=== PATIENT | male | born 1970 | race Caucasian/White ===

== ENCOUNTER 2022-09-01 23:28 | Inpatient (IN) | payer MEDICARE, OTHER ==
[2022-09-01] MEDS ORDERED: LORazepam 2 MG/ML INJ IV PRN ×3 (23:53)
[2022-09-01] MEDS ORDERED: LORazepam 2 MG/ML INJ IV STA (23:53)
[2022-09-01] MEDS ORDERED: THIAMINE 100 MG/ML 2 ML VIAL IM STA (23:53)
--- NOTE | 2022-09-01 23:56 | ED ---
General Adult HPI - General Chief complaint: Chest Pain Stated complaint: High Heart rate Time Seen by Provider: 09/01/22 23:34 Source: patient Mode of arrival: EMS Limitations: no limitations - History of Present Illness Initial comments: Dictation was produced using [employer] dictation software. please excuse any grammatical, word or spelling errors. Chief Complaint: 52-year-old male presents to emergency room for tachycardia History of Present Illness: To 4-year-old male presents emergency department for tachycardia. Patient is a alcoholic. He drinks 3-4 pints of liquor each day. His last alcohol intake was 24 hours ago. Patient tried to check into detox facility, [facility]. Initial vitals upon evaluation showed patient had a high heart rate anywhere between 06/26/1947. Patient complaint of palpitations and some chest pressure. Denies any cardiac history. Patient states pain is nonradiating. No associated diaphoresis or nausea. Denies any abdominal pain. Denies any shortness of breath The ROS documented in this emergency department record has been reviewed and confirmed by me. Those systems with pertinent positive or negative responses have been documented in the HPI. All other systems are other negative and/or noncontributory. PHYSICAL EXAM: General Impression: Alert and oriented x3, not in acute distress HEENT: Normocephalic atraumatic, extra-ocular movements intact, pupils equal and reactive to light bilaterally, mucous membranes moist. Cardiovascular: Tachycardic Chest: Able to complete full sentences, no retractions, no tachypnea Abdomen: abdomen soft, non-tender, non-distended, no organomegaly Musculoskeletal: Pulses present and equal in all extremities, no peripheral edema Motor: no focal deficits noted Neurological: CN II-XII grossly intact, no focal motor or sensory deficits noted Skin: Intact with no visualized rashes Psych: Normal affect and mood ED course: 52-year-old male presents emergency Department from [facility] detox [facility] for tachycardia. Patient also complaining of chest pressure. Vital signs upon arrival shows heart rate 134, rest of vital signs within acceptable limits. EKG shows sinus tachycardia without any signs of ischemia Nursing notes and chart review was performed EKG interpreted by me: Ventricular rate 125, sinus tachycardia, MI interval 134, QRS 92, QTc 45. No MI prolongation, no QTC prolongation, no ST or T-wave changes noted. Overall, this EKG is unremarkable Was pt. sent in by a medical professional or institution (ADRYAN Murillo, TECHNICAL RECRUITER, urgent care, hospital, or alf...) When possible be specific @ -[facility] Did you speak to anyone other than the patient for history (EMS, parent, family, police, friend...)? What history was obtained from this source @ -No Did you review nursing and triage notes (agree or disagree)? Why? @ -I reviewed and agree with nursing and triage notes Were old charts reviewed (outside hosp., previous admission, EMS record, old EKG, old radiological studies, urgent care reports/EKG's, alf records)? Report findings @ -No old charts were reviewed Differential Diagnosis (chest pain, altered mental status, abdominal pain women, abdominal pain men, vaginal bleeding, musculoskeletal, weakness, fever, dyspnea, syncope, headache, dizziness, GI bleed, back pain, seizure, CVA, palpatations, mental health)? @ -Differential Chest Pain: Stable Angina, Unstable Angina, STEMI, NSTEMI Aortic Dissection, Pneumothorax, Musculoskeletal, Esophageal Spasm GERD, Cholecystitis, Pancreatitis, Zoster, this is not meant to be an all-inclusive list. EKG interpreted by me (3pts min.). @ -See above X-rays interpreted by me (1pt min.). @ -Non acute CT interpreted by me (1pt min.). @ -None done U/S interpreted by me (1pt. min.). @ -None done What testing was considered but not performed or refused? (CT, X-rays, U/S, labs)? Why? @ -None What meds were considered but not given or refused? Why? @ -None Did you discuss the management of the patient with other professionals (professionals i.e. ADRYAN Murillo, TECHNICAL RECRUITER, lab, RT, psych nurse, professor of social work, experience designer, teacher, ground defence officer, dependency case manager)? Give summary @ -Dr. Johnson for admission Was smoking cessation discussed for >3mins.? @ -No Was critical care preformed (if so, how long)? @ -No Were there social determinants of health that impacted care today? How? (Homelessness, low income, unemployed, alcoholism, drug addiction, transportation, low edu. Level, literacy, decrease access to med. care, retirement, rehab)? @ -Alcoholism Was there de-escalation of care discussed even if they declined (Discuss DNR or withdrawal of care, Hospice)? DNR status @ -No What co-morbidities impacted this encounter? (DM, HTN, Smoking, COPD, CAD, Cancer, CVA, ARF, Chemo, Hep., AIDS, mental health diagnosis, sleep apnea, morbid obesity)? @ -None Was patient admitted / discharged? Hospital course, mention meds given and route, prescriptions, significant lab abnormalities, going to OR and other pertinent info. @ -Male presents emergency department for tachycardia. Patient appears to be spritzing alcohol withdrawals. He also has complaint of chest pain. His symptoms are atypical typical features. His cardiac workup is so far negative. Patient be admitted for alcohol withdrawals. And cardiac evaluation. Undiagnosed new problem with uncertain prognosis? @ -No Drug Therapy requiring intensive monitoring for toxicity (Heparin, Nitro, Insulin, Cardizem)? @ -No Were any procedures done? @ -No Diagnosis/symptom? Acute, or Chronic, or Acute on Chronic? Uncomplicated (without systemic symptoms) or Complicated (systemic symptoms)? @ -1. Alcohol Withdrawal, 2. Chest pain Side effects of treatment? @ -No Exacerbation, Progression, or Severe Exacerbation? @ -No Poses a threat to life or bodily function? How? (Chest pain, [place], [place], pneumonia, PE, COPD, DKA, ARF, appy, cholecystitis, CVA, Diverticulitis, Homicidal, Suicidal, threat to staff... and all critical care pts) @ -No - Related Data Allergies Allergy/AdvReac Type Severity Reaction Status Date / Time metoprolol [From Lopressor] Allergy Rapid Verified 09/02/22 00:01 Heart Rate Penicillins Allergy Unknown Verified 09/02/22 00:01 Childhood Review of Systems ROS Statement: Those systems with pertinent positive or pertinent negative responses have been documented in the HPI. ROS Other: All systems not noted in ROS Statement are negative. Past Medical History Past Medical History: Hypertension Additional Past Medical History / Comment(s): Cerebral Aataxia Past Surgical History: No Surgical Hx Reported Past Psychological History: No Psychological Hx Reported Smoking Status: Former smoker Past Alcohol Use History: Abuse Past Drug Use History: None Reported General Exam Limitations: no limitations Course Vital Signs 09/01/22 23:30 Temperature 97.7 F Pulse Rate 134 H Respiratory 16 Rate Blood Pressure 166/95 O2 Sat by Pulse 93 L Oximetry Medical Decision Making - Lab Data Result diagrams: 09/01/22 23:55 09/01/22 23:55 Lab Results 09/01/22 09/01/22 09/01/22 Range/Units 23:55 23:55 23:55 WBC 11.3 H (3.8-10.6) k/uL RBC 4.54 (4.30-5.90) m/uL Hgb 13.7 (13.0-17.5) gm/dL Hct 39.5 (39.0-53.0) % MCV 87.1 (80.0-100.0) fL MCH 30.2 (25.0-35.0) pg MCHC 34.6 (31.0-37.0) g/dL RDW 13.5 (11.5-15.5) % Plt Count 167 (150-450) k/uL MPV 7.3 Neutrophils % 85 % Lymphocytes % 9 % Monocytes % 3 % Eosinophils % 1 % Basophils % 1 % Neutrophils # 9.6 H (1.3-7.7) k/uL Lymphocytes # 1.1 (1.0-4.8) k/uL Monocytes # 0.4 (0-1.0) k/uL Eosinophils # 0.2 (0-0.7) k/uL Basophils # 0.1 (0-0.2) k/uL PT 10.0 (9.0-12.0) sec INR 0.9 (<1.2) APTT 22.5 (22.0-30.0) sec Sodium 128 L (137-145) mmol/L Potassium 3.8 (3.5-5.1) mmol/L Chloride 86 L (98-107) mmol/L Carbon Dioxide 28 (22-30) mmol/L Anion Gap 14 mmol/L BUN 23 H (9-20) mg/dL Creatinine 1.18 (0.66-1.25) mg/dL Est GFR (CKD-EPI)AfAm 83 (>60 ml/min/1.73 sqM) Est GFR (CKD-EPI)NonAf 72 (>60 ml/min/1.73 sqM) Glucose 99 (74-99) mg/dL Calcium 7.7 L (8.4-10.2) mg/dL Magnesium 1.4 L (1.6-2.3) mg/dL Total Bilirubin 1.0 (0.2-1.3) mg/dL AST 66 H (17-59) U/L ALT 42 (4-49) U/L Alkaline Phosphatase 52 (38-126) U/L Troponin I (0.000-0.034) ng/mL Total Protein 6.5 (6.3-8.2) g/dL Albumin 4.1 (3.5-5.0) g/dL TSH 0.891 (0.465-4.680) mIU/L 09/01/22 Range/Units 23:55 WBC (3.8-10.6) k/uL RBC (4.30-5.90) m/uL Hgb (13.0-17.5) gm/dL Hct (39.0-53.0) % MCV (80.0-100.0) fL MCH (25.0-35.0) pg MCHC (31.0-37.0) g/dL RDW (11.5-15.5) % Plt Count (150-450) k/uL MPV Neutrophils % % Lymphocytes % % Monocytes % % Eosinophils % % Basophils % % Neutrophils # (1.3-7.7) k/uL Lymphocytes # (1.0-4.8) k/uL Monocytes # (0-1.0) k/uL Eosinophils # (0-0.7) k/uL Basophils # (0-0.2) k/uL PT (9.0-12.0) sec INR (<1.2) APTT (22.0-30.0) sec Sodium (137-145) mmol/L Potassium (3.5-5.1) mmol/L Chloride (98-107) mmol/L Carbon Dioxide (22-30) mmol/L Anion Gap mmol/L BUN (9-20) mg/dL Creatinine (0.66-1.25) mg/dL Est GFR (CKD-EPI)AfAm (>60 ml/min/1.73 sqM) Est GFR (CKD-EPI)NonAf (>60 ml/min/1.73 sqM) Glucose (74-99) mg/dL Calcium (8.4-10.2) mg/dL Magnesium (1.6-2.3) mg/dL Total Bilirubin (0.2-1.3) mg/dL AST (17-59) U/L ALT (4-49) U/L Alkaline Phosphatase (38-126) U/L Troponin I <0.012 (0.000-0.034) ng/mL Total Protein (6.3-8.2) g/dL Albumin (3.5-5.0) g/dL TSH (0.465-4.680) mIU/L Disposition Clinical Impression: Alcohol withdrawal, Chest pain Disposition: ADMITTED IP TO THIS HOSP Condition: Fair Referrals: None,Stated [REFERRING] - 1-2 days Decision Time: 01:09
--- NOTE | 2022-09-02 00:08 | XR ---
EXAMINATION TYPE: XR chest 2V DATE OF EXAM: 09/01/2022 COMPARISON: NONE TECHNIQUE: PA and lateral views submitted. HISTORY: Chest pressure FINDINGS: The lungs are clear and there is no pneumothorax, pleural effusion, or focal pneumonia. Heart size normal and no overt failure. Osseous structures demonstrate hypertrophic and degenerative changes of the spine. Hyperinflation suggests COPD. There there is a deformity of the lower right rib approximat e level of the right ninth lateral rib. IMPRESSION: 1. No acute process. Appears to be a healing fracture of the right lateral ninth rib correlate clinic ally.
[2022-09-02 00:09] LABS: Basophils # (A) 0.1 k/uL (0-0.2); Basophils % (A) 1 %; Eosinophils # (A) 0.2 k/uL (0-0.7); Eosinophils % (A) 1 %; HCT 39.5 % (39.0-53.0); HGB 13.7 gm/dL (13.0-17.5); Lymphocytes # (A) 1.1 k/uL (1.0-4.8); Lymphocytes % (A) 9 %; MCH 30.2 pg (25.0-35.0); MCHC 34.6 g/dL (31.0-37.0); MCV 87.1 fL (80.0-100.0); Mean Platelet Volume 7.3; Monocytes # (A) 0.4 k/uL (0-1.0); Monocytes % (A) 3 %; Neutrophils # (A) 9.6 k/uL (1.3-7.7); Neutrophils % (A) 85 %; Platelet Count 167 k/uL (150-450); RBC 4.54 m/uL (4.30-5.90); RDW 13.5 % (11.5-15.5); WBC 11.3 k/uL (3.8-10.6)
[2022-09-02 00:14] LABS: Albumin 4.1 g/dL (3.5-5.0); Calcium 7.7 mg/dL (8.4-10.2); Magnesium 1.4 mg/dL (1.6-2.3); Potassium 3.8 mmol/L (3.5-5.1); Total Protein 6.5 g/dL (6.3-8.2)
[2022-09-02 00:19] LABS: INR 0.9 (<1.2); Partial Thromboplastin Time 22.5 sec (22.0-30.0)
[2022-09-02] MEDS ORDERED: NALOXONE 0.4 MG/ML 1 ML VIAL IV PRN (01:04)
[2022-09-02] MEDS ORDERED: ASPIRIN 81 MG PO STA (01:06)
[2022-09-02] MEDS: SODIUM CHLORIDE 0.9% 1,000 ML IV SCH ×2 (01:33→18:16)
--- NOTE | 2022-09-02 04:32 | P.HPIM ---
History of Present Illness H&P Date: 09/02/22 The patient is a 52-year-old male with a PMH of EtOH abuse and hypertension who presents to the emergency room, sent by [facility] for elevated heart rate and blood pressure. The patient reports that he has been drinking 3-4 pints of vodka daily for the past several years. States that he stopped drinking about 2 days ago to prepare for going to a rehab facility. He presented there earlier today and appeared to be shaky and entry alcohol withdrawal and a subtotally sent to the emergency room. The patient also reports that he's been experiencing intermittent left-sided achy chest discomfort, 5 out of 10 on maximal intensity, nonradiating, with some associated nausea throughout the day today. He denies any alleviating or exacerbating features and states that the pain was nonpleuritic. Reports being added lisinopril time of interview and states that the pain had resolved a few hours ago spontaneously. Denies experiencing cough, fever, chills. Denied shortness of breath,diaphoresis, or dizziness. Chest x-ray in the emergency room revealed a healing fracture of the right lateral ninth rib with no other acute abnormalities. EKG revealed sinus tachycardia at [address]/T-wave changes noted as reviewed by me. Laboratory evaluation was remarkable for leukocytosis of 11.3, hemoglobin 13.7, sodium 128, chloride 86, BUN 23, creatinine 1.18, calcium 7.7, magnesium 1.4, and AST 66, with troponin less than 0.012. ED documentation reviewed and case discussed with ED provider. Review of systems: Pertinent positives and negatives as discussed in HPI, a complete review of systems was performed and all other systems are negative. Physical examination: Vital signs reviewed General: non toxic, no distress, appears at stated age, normal weight Derm: no unusual rashes/lesions, warm Head: atraumatic, normocephalic, symmetric Eyes: EOMI, no lid lag, anicteric sclera, pupils equal round reactive to light ENT: Nose and ears atraumatic Neck: No cervical lymphadenopathy, trachea midline, supple Mouth: no lip lesion, mucus membranes moist Cardiovascular: S1S2 reg, no murmur, positive dorsalis pedis pulse bilateral, no edema Lungs: CTA bilateral, no rhonchi, no rales, no accessory muscle use Abdominal: soft, nontender to palpation, no guarding Ext: muscle strength 5 out of 5 in all 4 extremities grossly, no gross muscle atrophy, no contractures, Neuro: CN II-XI grossly intact, no gross focal neuro deficits, mild outstretched hand tremor with tongue fasciculations noted Psych: Alert, oriented, appropriate affect Assessment: Alcohol abuse with impending withdrawal Chest pain, rule out ACS Leukocytosis Hypochloremic hyponatremia Hypocalcemia Hypomagnesemia Elevated AST Hypertension Imaging: Chest x-ray in the emergency room revealed a healing fracture of the right lateral ninth rib with no other acute abnormalities. EKG revealed sinus tachycardia at [address]/T-wave changes noted as reviewed by me Data Review: Laboratory evaluation was remarkable for leukocytosis of 11.3, hemoglobin 13.7, sodium 128, chloride 86, BUN 23, creatinine 1.18, calcium 7.7, magnesium 1.4, and AST 66, with troponin less than 0.012 Plan: Start patient on Librium 25 mg by mouth 3 times a day CIWA protocol Continue with thiamine IV fluids with normal saline 75 by mouth per hour Continue with aspirin Cardiology consulted Cardiac monitoring Trend troponin Leukocytosis likely due to acute stressor with no signs of active infection at this time Hypochloremic hyponatremia likely due to ongoing EtOH abuse with poor oral intake. Continue with IV fluids Replace magnesium and monitor Continue with home Norvasc dose Abnormal LFTs likely due to ongoing alcohol abuse DVT prophylaxis: Heparin subq The patient is admitted with an anticipated greater than 2 midnight stay for evaluation of EtOH abuse CODE STATUS: Full Code Discussed with: Patient Anticipated discharge place: [facility] Past Medical History Past Medical History: Hypertension Additional Past Medical History / Comment(s): Cerebral Aataxia, Patient states had one seizure during ETOH withdrawal about 5 years ago where he was hospitalized and in a coma for 3 days. History of Any Multi-Drug Resistant Organisms: None Reported Past Surgical History: No Surgical Hx Reported Past Anesthesia/Blood Transfusion Reactions: No Reported Reaction Smoking Status: Former smoker - Past Family History Mother Family Medical History: Cancer, Coronary Artery Disease (CAD) Additional Family Medical History / Comment(s): from Breast Cancer Father History Unknown: Yes Additional Family Medical History / Comment(s): from complications during knee surgery. Medications and Allergies Home Medications Medication Instructions Recorded Confirmed Type Cyanocobalamin [Vitamin B-12] 500 mcg PO DAILY 09/02/22 09/02/22 History DULoxetine HCL [Cymbalta] 30 mg PO DAILY 09/02/22 09/02/22 History Magnesium Oxide [Magnesium] 500 mg PO BID 09/02/22 09/02/22 History amLODIPine [Norvasc] 5 mg PO BID 09/02/22 09/02/22 History cloNIDine 0.1 MG/24HR PATCH 1 patch TRANSDERM Q7D 09/02/22 09/02/22 History [Catapres-TTS] Allergies Allergy/AdvReac Type Severity Reaction Status Date / Time bee venom protein (honey bee) Allergy Mild Rash/Hives Verified 09/02/22 03:16 latex Allergy Mild hives, rash Verified 09/02/22 03:15 metoprolol [From Lopressor] Allergy Rapid Verified 09/02/22 00:01 Heart Rate Penicillins Allergy Unknown Verified 09/02/22 00:01 Childhood Physical Exam Vitals: Vital Signs Temp Pulse Pulse Resp BP BP Pulse Ox 09/02/22 02:31 98 F 117 H 18 150/89 98 09/01/22 23:30 97.7 F 134 H 16 166/95 93 L Intake and Output 09/01/22 09/01/22 09/02/22 14:59 22:59 06:59 Other: Voiding Method Toilet Weight 68.039 kg Results CBC & Chem 7: 09/01/22 23:55 09/01/22 23:55 Labs: Abnormal Lab Results - Last 24 Hours (Table) 09/01/22 09/01/22 Range/Units 23:55 23:55 WBC 11.3 H (3.8-10.6) k/uL Neutrophils # 9.6 H (1.3-7.7) k/uL Sodium 128 L (137-145) mmol/L Chloride 86 L (98-107) mmol/L BUN 23 H (9-20) mg/dL Calcium 7.7 L (8.4-10.2) mg/dL Magnesium 1.4 L (1.6-2.3) mg/dL AST 66 H (17-59) U/L Thrombosis Risk Factor Assmnt - Choose All That Apply Any of the Below Risk Factors Present?: Yes Each Factor Represents 1 point: Age 41-60 years Other Risk Factors: No Other congenital or acquired thrombophilia - If yes, enter type in comment: No Thrombosis Risk Factor Assessment Total Risk Factor Score: 1 Thrombosis Risk Factor Assessment Level: Low Risk
[2022-09-02] MEDS: MAGNESIUM SULFATE-D5W PMX 1 GM in DEXTROSE/WATER 1 100ML.BAG IVPB SCH ×2 (05:04→06:06)
[2022-09-02] MEDS ORDERED: cloNIDine 0.1 MG/24HR PATCH TRANSDERM SCH (09:00)
[2022-09-02] MEDS: chlordiazePOXIDE 25 MG CAP PO SCH ×3 (09:46→21:59)
[2022-09-02] MEDS: THIAMINE 100 MG TAB PO SCH (09:46)
[2022-09-02] MEDS: HEPARIN SODIUM,PORCINE/PF 5,000 UNIT/0.5 ML SYRINGE SQ SCH ×2 (09:46→16:59)
[2022-09-02] MEDS: DULoxetine HCL 30 MG CAPSULE.DR PO SCH (09:46)
[2022-09-02] MEDS: amLODIPine 5 MG TAB PO SCH ×2 (09:47→21:59)
[2022-09-02] MEDS: METOPROLOL SUCCINATE (ER) 25 MG TAB.ER.24H PO SCH (09:50)
--- NOTE | 2022-09-02 11:02 | P.CRDCN ---
History of Present Illness History of present illness: HISTORY OF PRESENT ILLNESS: This is a 52-year-old male with a past medical history significant for hypertension and alcohol abuse. Patient does not follow with a composite technician. We have been asked to see the patient in consultation for chest pain. Patient examined at the bedside. Patient came to the hospital yesterday from [place] secondary to chest pain and hypertension. He has a history of alcohol abuse and states his last drink was approximately 24 hours ago. Patient was found to be hypertensive at [place]. Patient's blood pressures are improved this morning with a blood pressure of 129/80. He is mildly tachycardic with a heart rate around 110. Patient states he was having some mild chest discomfort yesterday which has since resolved. The patient reports he had a cardiac catheterization performed a few years ago and [place] and was told he had minimal blockages around 20%. * EKG reveals sinus tachycardia. Heart rate 125. Nonspecific ST-T wave changes. * Chest xray negative for acute process. Appears to be a healing fracture of the right lateral ninth rib. * Laboratory data: WBC 11.3. Hemoglobin 11.7. Platelet count 167. Sodium 128. Potassium 3.8. BUN 23. Creatinine 1.18. Troponin negative 2. TSH 0.891. * Current home cardiac medications include Catapres 0.1 mg patch every Saturday and amlodipine 5 mg twice a day REVIEW OF SYSTEMS: At the time of my exam: CONSTITUTIONAL: Denies fever or chills. HEENT: Denies blurred vision, vision changes, or eye pain. Denies hemoptysis CARDIOVASCULAR: Denies chest pain. Denies orthopnea. Denies PND. Denies palpitations RESPIRATORY: Denies shortness of breath. GASTROINTESTINAL: Denies abdominal pain. Denies nausea or vomiting. HEMATOLOGIC: Denies bleeding disorders. GENITOURINARY: Denies any blood in urine. SKIN: Denies pruitis. Denies rash. PHYSICAL EXAM: VITAL SIGNS: Reviewed. GENERAL: Well-developed in no acute distress. HEENT: Head is normocephalic. Pupils are equal, round. Sclerae anicteric. Mucous membranes of the mouth are moist. Neck supple. No JVD or thyromegaly LUNGS: Respirations even and unlabored. Lungs essentially clear to auscultation bilaterally. HEART: Tachycardia. Regular rate and rhythm. S1 and S2 heard. ABDOMEN: Soft. Nondistended. Nontender. EXTREMITIES: Normal range of motion. No clubbing or cyanosis. Peripheral pulses intact. No lower extremity edema NEUROLOGIC: Awake and alert. Oriented x 3. ASSESSMENT: Chest pain, appears noncardiac, troponin negative 2 Hypertension, uncontrolled on admission, improving Sinus tachycardia, likely secondary to alcohol withdrawal Nonobstructive coronary artery disease, patient reports having a cardiac catheterization approximately 3 years ago in [place] Hyponatremia Alcohol abuse PLAN: An acute coronary event has been ruled out Resume home cardiac medications Add metoprolol succinate 25 mg daily Continue telemetry monitoring Obtain 2-D echo to assess cardiac structure and function Abstinence from alcohol recommended Further recommendations pending patient's course Nurse practitioner note has been reviewed by physician. Signing provider agrees with the documented findings, assessment, and plan of care. Past Medical History Past Medical History: Hypertension Additional Past Medical History / Comment(s): Cerebral Aataxia, Patient states had one seizure during ETOH withdrawal about 5 years ago where he was hospitalized and in a coma for 3 days. History of Any Multi-Drug Resistant Organisms: None Reported Past Surgical History: No Surgical Hx Reported Past Anesthesia/Blood Transfusion Reactions: No Reported Reaction Smoking Status: Former smoker - Past Family History Mother Family Medical History: Cancer, Coronary Artery Disease (CAD) Additional Family Medical History / Comment(s): from Breast Cancer Father History Unknown: Yes Additional Family Medical History / Comment(s): from complications during knee surgery. Medications and Allergies Home Medications Medication Instructions Recorded Confirmed Type Acetaminophen Tab [Tylenol] 650 mg PO Q4H PRN 09/02/22 09/02/22 History Calcium/Mag/Zinc/Kerry D 1 tab PO TID PRN 09/02/22 09/02/22 History Chlorpheniramine Maleate 4 mg PO Q4H PRN 09/02/22 09/02/22 History [Chlor-Trimeton] Cyanocobalamin [Vitamin B-12] 500 mcg PO DAILY 09/02/22 09/02/22 History DULoxetine HCL [Cymbalta] 30 mg PO DAILY 09/02/22 09/02/22 History Docusate [Colace] 100 mg PO BID PRN 09/02/22 09/02/22 History Hyoscyamine Sulfate [Levsin] 0.125 mg PO QID PRN 09/02/22 09/02/22 History Ibuprofen [Motrin Ib] 600 mg PO Q6H PRN 09/02/22 09/02/22 History LORazepam [Ativan] 1 mg PO DAILY PRN 09/02/22 09/02/22 History Loperamide HCl [Imodium A-D] 4 mg PO QID PRN 09/02/22 09/02/22 History Mag Hydrox/Aluminum Hyd/Simeth 30 ml PO Q4H PRN 09/02/22 09/02/22 History [Mylanta Maximum Strength Liq] Magnesium Hydroxide [Milk of 2,400 mg PO BID PRN 09/02/22 09/02/22 History Magnesia] Magnesium Oxide [Magnesium] 500 mg PO BID-W/MEALS 09/02/22 09/02/22 History Multivitamins, Thera [Multivitamin 1 tab PO DAILY 09/02/22 09/02/22 History (formulary)] Ondansetron [Zofran] 4 mg PO Q6H PRN 09/02/22 09/02/22 History Thiamine [Vitamin B-1] 100 mg PO DAILY 09/02/22 09/02/22 History amLODIPine [Norvasc] 5 mg PO BID 09/02/22 09/02/22 History cloNIDine 0.1 MG/24HR PATCH 1 patch TRANSDERM SA 09/02/22 09/02/22 History [Catapres-TTS] guaiFENesin SYRUP 100MG/5ML 200 mg PO Q4H PRN 09/02/22 09/02/22 History [Robitussin] Allergies Allergy/AdvReac Type Severity Reaction Status Date / Time bee venom protein (honey bee) Allergy Mild Rash/Hives Verified 09/02/22 10:31 latex Allergy Mild hives, rash Verified 09/02/22 10:31 metoprolol [From Lopressor] Allergy Rapid Verified 09/02/22 10:31 Heart Rate Penicillins Allergy Unknown Verified 09/02/22 10:31 Childhood Physical Exam Vitals: Vital Signs Temp Pulse Pulse Resp BP BP Pulse Ox 09/02/22 04:00 97.9 F 116 H 16 129/80 92 L 09/02/22 02:31 98 F 117 H 18 150/89 98 09/01/22 23:30 97.7 F 134 H 16 166/95 93 L Intake and Output 09/01/22 09/02/22 09/02/22 22:59 06:59 14:59 Intake Total 1115 299 Balance 1115 299 Intake: Intake, IV Titration 575 Amount Magnesium Sulfate-D5w Pmx 200 1 gm In Dextrose/Water 1 100ml.bag @ 100 mls/hr IVPB Q1H [facility]YA Rx#: [id number] Sodium Chloride 0.9% 1, 375 000 ml @ 75 mls/hr IV . [id number] [facility] Rx#:[id number] Oral 540 299 Other: Voiding Method Toilet Weight 68.039 kg Results 09/01/22 23:55 09/01/22 23:55 Cardiac Enzymes 09/01/22 09/01/22 Range/Units 23:55 23:55 AST 66 H (17-59) U/L Troponin I <0.012 (0.000-0.034) ng/mL Coagulation 09/01/22 Range/Units 23:55 PT 10.0 (9.0-12.0) sec APTT 22.5 (22.0-30.0) sec CBC 09/01/22 Range/Units 23:55 WBC 11.3 H (3.8-10.6) k/uL RBC 4.54 (4.30-5.90) m/uL Hgb 13.7 (13.0-17.5) gm/dL Hct 39.5 (39.0-53.0) % Plt Count 167 (150-450) k/uL Comprehensive Metabolic Panel 09/01/22 Range/Units 23:55 Sodium 128 L (137-145) mmol/L Potassium 3.8 (3.5-5.1) mmol/L Chloride 86 L (98-107) mmol/L Carbon Dioxide 28 (22-30) mmol/L BUN 23 H (9-20) mg/dL Creatinine 1.18 (0.66-1.25) mg/dL Glucose 99 (74-99) mg/dL Calcium 7.7 L (8.4-10.2) mg/dL AST 66 H (17-59) U/L ALT 42 (4-49) U/L Alkaline Phosphatase 52 (38-126) U/L Total Protein 6.5 (6.3-8.2) g/dL Albumin 4.1 (3.5-5.0) g/dL Current Medications Generic Name Dose Route Start Last Admin Trade Name Freq PRN Reason Stop Dose Admin Amlodipine Besylate 5 mg 09/02/22 09:00 Amlodipine 5 Mg Tab PO BID [facility] Chlordiazepoxide HCl 25 mg 09/02/22 09:00 Chlordiazepoxide 25 Mg Cap PO TID [facility] Duloxetine HCl 30 mg 09/02/22 09:00 Duloxetine Hcl 30 Mg Capsule.Dr PO DAILY [facility] Heparin Sodium (Porcine) 5,000 unit 09/02/22 08:00 Heparin Sodium,Porcine/Pf 5,000 Unit/0.5 Ml Syringe SQ Q8HR [facility] Sodium Chloride 1,000 mls @ 75 mls/hr 09/02/22 01:15 09/02/22 01:33 Saline 0.9% IV 75 mls/hr .[id number] DIVYA Administration Lorazepam 1 mg 09/01/22 23:53 Lorazepam 2 Mg/Ml Inj IV Q1HR PRN CIWA 10 to 15 Lorazepam 1 mg 09/01/22 23:53 Lorazepam 2 Mg/Ml Inj IV Q2HR PRN CIWA 8 or 9 Lorazepam 2 mg 09/01/22 23:53 Lorazepam 2 Mg/Ml Inj IV 09/03/22 23:54 Q10M PRN CIWA 16 or higher Naloxone HCl 0.2 mg 09/02/22 01:04 Naloxone 0.4 Mg/Ml 1 Ml Vial IV Q2M PRN Opioid Reversal Thiamine HCl 100 mg 09/02/22 09:00 Thiamine 100 Mg Tab PO DAILY [facility] Intake and Output 09/01/22 09/02/22 09/02/22 22:59 06:59 14:59 Intake Total 1115 299 Balance 1115 299 Intake: Intake, IV Titration 575 Amount Magnesium Sulfate-D5w Pmx 200 1 gm In Dextrose/Water 1 100ml.bag @ 100 mls/hr IVPB Q1H [facility] Rx#: [id number] Sodium Chloride 0.9% 1, 375 000 ml @ 75 mls/hr IV . [id number] [facility] Rx#:[id number] Oral 540 299 Other: Voiding Method Toilet Weight 68.039 kg 09/01/22 23:55 09/01/22 23:55
[2022-09-02] MEDS ORDERED: DOCUSATE 100 MG CAP PO PRN (12:33)
[2022-09-02 13:53] VITALS: RESP 18
[2022-09-02] MEDS: ACETAMINOPHEN TAB 325 MG TAB PO PRN (16:59)
[2022-09-02] MEDS: MAGNESIUM OXIDE 400 MG TAB PO SCH (16:59)
[2022-09-03] MEDS: HEPARIN SODIUM,PORCINE/PF 5,000 UNIT/0.5 ML SYRINGE SQ SCH ×3 (00:15→15:21)
[2022-09-03] MEDS: ACETAMINOPHEN TAB 325 MG TAB PO PRN (00:42)
[2022-09-03] MEDS: MAGNESIUM OXIDE 400 MG TAB PO SCH ×2 (06:52→17:25)
[2022-09-03 07:01] LABS: Basophils % (A) 0 %; Eosinophils # (A) 0.2 k/uL (0-0.7); Eosinophils % (A) 3 %; HCT 38.8 % (39.0-53.0); HGB 13.2 gm/dL (13.0-17.5); Lymphocytes # (A) 0.9 k/uL (1.0-4.8); Lymphocytes % (A) 14 %; MCH 30.2 pg (25.0-35.0); MCHC 34.1 g/dL (31.0-37.0); MCV 88.5 fL (80.0-100.0); Mean Platelet Volume 8.1; Monocytes # (A) 0.3 k/uL (0-1.0); Monocytes % (A) 4 %; Neutrophils # (A) 5.1 k/uL (1.3-7.7); Neutrophils % (A) 79 %; Platelet Count 140 k/uL (150-450); RBC 4.38 m/uL (4.30-5.90); RDW 13.2 % (11.5-15.5); WBC 6.4 k/uL (3.8-10.6)
[2022-09-03 07:16] LABS: African American GFR (CKD) >90 (>60 ml/min/1.73 sqM); Anion Gap 7 mmol/L; Blood Urea Nitrogen 10 mg/dL (9-20); Calcium 8.4 mg/dL (8.4-10.2); Carbon Dioxide 33 mmol/L (22-30); Chloride 92 mmol/L (98-107); Glucose 86 mg/dL (74-99); Non-African American GFR(CKD) >90 (>60 ml/min/1.73 sqM); Potassium 3.6 mmol/L (3.5-5.1); Sodium 132 mmol/L (137-145)
[2022-09-03] MEDS: SODIUM CHLORIDE 0.9% 1,000 ML IV SCH ×2 (08:35→17:23)
[2022-09-03] MEDS: DULoxetine HCL 30 MG CAPSULE.DR PO SCH (08:36)
[2022-09-03] MEDS: METOPROLOL SUCCINATE (ER) 25 MG TAB.ER.24H PO SCH (08:36)
[2022-09-03] MEDS: CYANOCOBALAMIN 500 MCG TAB PO SCH (08:36)
[2022-09-03] MEDS: amLODIPine 5 MG TAB PO SCH ×2 (08:36→20:37)
[2022-09-03] MEDS: MULTIVITAMINS, THERA 1 EACH TAB PO SCH (08:36)
[2022-09-03] MEDS: THIAMINE 100 MG TAB PO SCH (08:36)
--- NOTE | 2022-09-03 10:59 | P.PN ---
Subjective Progress Note Date: 09/03/22 Hospital Course: 52-year-old male with a PMH of EtOH abuse and hypertension who presents to the emergency room, sent by [place] for elevated heart rate and blood pressure. He is also complaining of chest pain. Chest x-ray in the emergency room revealed a healing fracture of the right lateral ninth rib with no other acute abnormalities. EKG revealed sinus tachycardia at [address]/T-wave changes noted as reviewed by me. Laboratory evaluation was remarkable for leukocytosis of 11.3, hemoglobin 13.7, sodium 128, chloride 86, BUN 23, creatinine 1.18, calcium 7.7, magnesium 1.4, and AST 66, with troponin less than 0.012. Cardiology was consulted. ACS ruled out. Echocardiogram pending. Patient currently on Librium taper, plan for discharge back to [place]. Subjective: She is seen and examined at bedside. No acute events overnight. Currently denies any chest pain, shortness of breath, abdominal pain, nausea, vomiting, diarrhea, constipation, or urinary complaints. Pertinent positives and negatives as discussed above, a complete review of systems was performed and all other systems are negative. Vitals Signs Reviewed. General: nontoxic, no distress, appears at stated age Derm: warm, dry Head: atraumatic, normocephalic, symmetric Eyes: EOMI, no lid lag, anicteric sclera Mouth: no lip lesion, mucus membranes moist Cardiovascular: S1S2 reg, no murmur Lungs: CTA bilateral, no rhonchi, no rales , no accessory muscle use Abdominal: soft, nontender to palpation, no guarding, no appreciable organomegaly Ext: no gross muscle atrophy, no edema, no contractures Neuro: CN II-XI grossly intact, no focal neuro deficits, mild tremor Psych: Alert, oriented, appropriate affect Data Reviewed Today: Pertinent Labs: WBC 6.4, hemoglobin 13.2, platelet 140, sodium 132, creatinine 0.84, magnesium 1.6 Assessment and Plan: Active: Acute alcohol withdrawal Alcohol dependence Hypertension Mild hyponatremia -Librium decreased to 10 mg 3 times a day, consider one more day of the Librium tomorrow and discharge back to [facility] -Also on IV Ativan as needed per CIWA scores, did not require any -I meet 100 mg daily -Blood pressure now better controlled, likely was elevated in the setting of alcohol withdrawal, continue home amlodipine 5 mg twice a day, clonidine patch -Cardiology following, patient started on metoprolol 25 daily, echocardiogram pending -Sodium improving with IV fluids Resolved: Chest pain Leukocytosis Hypomagnesemia Chronic: Depression/anxiety DVT ppx: Subcu heparin Code status: Full code Anticipated discharge place: [facility] Anticipated discharge time: Likely Tomorrow Objective - Vital Signs Vital signs: Vital Signs Temp 98.1 F 09/03/22 08:20 Pulse 108 H 09/03/22 08:20 Resp 18 09/03/22 08:20 BP 135/90 09/03/22 08:20 Pulse Ox 96 09/03/22 08:20 FiO2 Intake & Output 09/02/22 09/03/22 09/03/22 18:59 06:59 18:59 Intake Total 535 118 Balance 535 118 Intake: Oral 535 118 Other: Voiding Method Toilet Toilet # Voids 2 1 - Labs CBC & Chem 7: 09/03/22 06:05 09/03/22 06:05 Labs: Abnormal Lab Results - Last 24 Hours (Table) 09/03/22 09/03/22 Range/Units 06:05 06:05 Hct 38.8 L (39.0-53.0) % Plt Count 140 L (150-450) k/uL Lymphocytes # 0.9 L (1.0-4.8) k/uL Sodium 132 L (137-145) mmol/L Chloride 92 L (98-107) mmol/L Carbon Dioxide 33 H (22-30) mmol/L
[2022-09-03] MEDS ORDERED: METOPROLOL SUCCINATE (ER) 25 MG TAB.ER.24H PO STA (12:13)
--- NOTE | 2022-09-03 13:59 | P.PN ---
Subjective Progress Note Date: 09/03/22 HISTORY OF PRESENT ILLNESS: This is a 52-year-old male with a past medical history significant for hypertension and alcohol abuse. Patient does not follow with a loss mitigation specialist. We have been asked to see the patient in consultation for chest pain. Patient examined at the bedside. Patient came to the hospital yesterday from [place] secondary to chest pain and hypertension. He has a history of alcohol abuse and states his last drink was approximately 24 hours ago. Patient was found to be hypertensive at [place]. Patient's blood pressures are improved this morning with a blood pressure of 129/80. He is mildly tachycardic with a heart rate around 110. Patient states he was having some mild chest discomfort yesterday which has since resolved. The patient reports he had a cardiac catheterization performed a few years ago and [place] and was told he had minimal blockages around 20%. * EKG reveals sinus tachycardia. Heart rate 125. Nonspecific ST-T wave whitman es. * Chest xray negative for acute process. Appears to be a healing fracture of the right lateral ninth rib. * Laboratory data: WBC 11.3. Hemoglobin 11.7. Platelet count 167. Sodium 128. Potassium 3.8. BUN 23. Creatinine 1.18. Troponin negative 2. TSH 0.891. * Current home cardiac medications include Catapres 0.1 mg patch every Saturday and amlodipine 5 mg twice a day 09/03 Patient denies any chest pain or shortness of breath. He is waiting for discharge planning to [place]. Heart rate is running in the low 100s. BP 125/90.Echocardiogram has been obtained and report is pending. PHYSICAL EXAM: VITAL SIGNS: Reviewed. GENERAL: Well-developed in no acute distress. HEENT: Head is normocephalic. Pupils are equal, round. Sclerae anicteric. Mucous membranes of the mouth are moist. Neck supple. No JVD or thyromegaly LUNGS: Respirations even and unlabored. Lungs essentially clear to auscultation bilaterally. HEART: Tachycardia. Regular rate and rhythm. S1 and S2 heard. ABDOMEN: Soft. Nondistended. Nontender. EXTREMITIES: Normal range of motion. No clubbing or cyanosis. Peripheral pulses intact. No lower extremity edema NEUROLOGIC: Awake and alert. Oriented x 3. ASSESSMENT: Chest pain, appears noncardiac, troponin negative 2 Hypertension, uncontrolled on admission, improving Sinus tachycardia, likely secondary to alcohol withdrawal Nonobstructive coronary artery disease, patient reports having a cardiac catheterization approximately 3 years ago in [place] Hyponatremia Alcohol abuse PLAN: An acute coronary event has been ruled out Resume home cardiac medications Continue metoprolol succinate 25 mg daily Discontinue telemetry monitoring Obtain 2-D echo to assess cardiac structure and function-report pending Abstinence from alcohol recommended Further recommendations pending patient's course Nurse practitioner note has been reviewed by physician. Signing provider agrees with the documented findings, assessment, and plan of care. Objective - Vital Signs Vital signs: Vital Signs Temp 98.1 F 09/03/22 08:20 Pulse 108 H 09/03/22 08:20 Resp 18 09/03/22 08:20 BP 135/90 09/03/22 08:20 Pulse Ox 96 09/03/22 08:20 FiO2 Intake & Output 09/02/22 09/03/22 09/03/22 18:59 06:59 18:59 Intake Total 535 118 Balance 535 118 Intake: Oral 535 118 Other: Voiding Method Toilet Toilet # Voids 2 1 - Labs CBC & Chem 7: 09/03/22 06:05 09/03/22 06:05 Labs: Abnormal Lab Results - Last 24 Hours (Table) 09/03/22 09/03/22 Range/Units 06:05 06:05 Hct 38.8 L (39.0-53.0) % Plt Count 140 L (150-450) k/uL Lymphocytes # 0.9 L (1.0-4.8) k/uL Sodium 132 L (137-145) mmol/L Chloride 92 L (98-107) mmol/L Carbon Dioxide 33 H (22-30) mmol/L
--- NOTE | 2022-09-03 14:32 | CA ---
Transthoracic Echo Report Name: Marco Oneill Age: 52 Gender: M : 1970 Exam Date: 09/03/2022 07:44 Exam Location: [place] Echo Ht (in): 69 Wt (lb): 150 Ordering Physician: Gail Mercado Attending/Referring Phys: [id number], Jess Nipping Machine Operator Tequila Steele RDCS Procedure CPT: Indications: LV function Cardiac Hx: Technical Quality: Technically difficult study Contrast 1: Total Dose (mL): Contrast 2: Total Dose (mL): MEASUREMENTS (Male / Female) Normal Values 2D ECHO LV Diastolic Diameter PLAX 3.7 cm 4.2 - 5.9 / 3.9 - 5.3 cm LV Systolic Diameter PLAX 2.8 cm IVS Diastolic Thickness 1.0 cm 0.6 - 1.0 / 0.6 - 0.9 cm LVPW Diastolic Thickness 1.7 cm 0.6 - 1.0 / 0.6 - 0.9 cm LV Relative Wall Thickness 0.7 M-MODE Aortic Root Diameter MM 3.0 cm AV Cusp Separation MM 1.9 cm DOPPLER MV Area PHT 11.4 cm??? Mitral E Point Velocity 52.5 cm/s Mitral A Point Velocity 77.8 cm/s Mitral E to A Ratio 0.7 MV Deceleration Time 66.4 ms FINDINGS Left Ventricle Mild concentric left ventricular hypertrophy. Grade 1 diastolic dysfunction. Right Ventricle Right ventricle not well visualized. Reduced right ventricular global systolic function. Right Atrium Normal right atrial size. Left Atrium Normal left atrial size. Mitral Valve Mitral valve not well visualized. No mitral regurgitation. Aortic Valve Trileaflet aortic valve. No aortic regurgitation. Tricuspid Valve No tricuspid regurgitation. Pulmonic Valve Pulmonic valve not well visualized. Pericardium Small pericardial effusion. Aorta Normal size aortic root aorta. Ascending aorta is not well visualized. CONCLUSIONS Mild LVH with preserved systolic function Previewed by: Dr. Corey Martinez MD (Electronically Signed) Final Date: 03 September 2022 14:31
[2022-09-04] MEDS: HEPARIN SODIUM,PORCINE/PF 5,000 UNIT/0.5 ML SYRINGE SQ SCH ×2 (00:56→08:17)
[2022-09-04] MEDS: MAGNESIUM OXIDE 400 MG TAB PO SCH (07:00)
[2022-09-04] MEDS: THIAMINE 100 MG TAB PO SCH (08:12)
[2022-09-04] MEDS: CYANOCOBALAMIN 500 MCG TAB PO SCH (08:13)
[2022-09-04] MEDS: amLODIPine 5 MG TAB PO SCH (08:13)
[2022-09-04] MEDS: DULoxetine HCL 30 MG CAPSULE.DR PO SCH (08:13)
[2022-09-04] MEDS: MULTIVITAMINS, THERA 1 EACH TAB PO SCH (08:13)
[2022-09-04] MEDS ORDERED: METOPROLOL SUCCINATE (ER) 50 MG TAB.ER.24H PO SCH (09:00)
[2022-09-04] MEDS: SODIUM CHLORIDE 0.9% 1,000 ML IV SCH (10:38)
[2022-09-04 11:30] VITALS: BP 140/84; PULSE 87; TEMP 97.4
--- NOTE | 2022-09-04 15:06 | P.DS ---
Providers Date of admission: 09/02/22 01:04 Expected date of discharge: 09/04/22 Attending physician: Johnny Johnson MD Consults: 09/02/22 04:29 Consult Physician Urgent Consulting Provider: Carter Herrera Consult Reason/Comments: chest pain Do you want consulting provider notified?: Yes Primary care physician: Physician Nonstaff Hospital Course: 52-year-old male with a PMH of EtOH abuse and hypertension who presents to the emergency room, sent by [place] for elevated heart rate and blood pressure. He is also complaining of chest pain. Chest x-ray in the emergency room re vealed a healing fracture of the right lateral ninth rib with no other acute abnormalities. EKG revealed sinus tachycardia at [address]/T-wave changes noted as reviewed by me. Laboratory evaluation was remarkable for leukocytosis of 11.3, hemoglobin 13.7, sodium 128, chloride 86, BUN 23, creatinine 1.18, calcium 7.7, magnesium 1.4, and AST 66, with troponin less than 0.012. Cardiology was consulted. ACS ruled out. Echocardiogram showed preserved EF with grade 1 diastolic dysfunction. Patient was seen and examined. No acute events overnight. Patient reports no complaints. He denies any chest pain, shortness breath or palpitations. No nausea or vomiting. No fever or chills. Plans to discharge patient to [place]. He was started on metoprolol 50 mg by mouth daily by cardiology. This will be continued on discharge. Pertinent studies include chest x-ray, echocardiogram. General: nontoxic, no distress, appears at stated age Derm: warm, dry Head: atraumatic, normocephalic, symmetric Eyes: EOMI, no lid lag, anicteric sclera Mouth: no lip lesion, mucus membranes moist Cardiovascular: S1S2 reg, no murmur Lungs: CTA bilateral, no rhonchi, no rales , no accessory muscle use Ext: no gross muscle atrophy, no edema, no contractures Neuro: no focal neuro deficits, no tremor Psych: Alert, oriented, appropriate affect Discharge diagnosis: Acute alcohol withdrawal Alcohol dependence Hypertension Mild hyponatremia This complex discharge took 35 minutes to complete. Patient Condition at Discharge: Stable Plan - Discharge Summary Discharge Rx Participant: Yes New Discharge Prescriptions: New Metoprolol Succinate (ER) [Toprol XL] 50 mg PO DAILY #30 tab Continue Loperamide HCl [Imodium A-D] 4 mg PO QID PRN PRN Reason: Diarrhea Docusate [Colace] 100 mg PO BID PRN PRN Reason: Constipation Chlorpheniramine Maleate [Chlor-Trimeton] 4 mg PO Q4H PRN PRN Reason: Allergy Symptoms amLODIPine [Norvasc] 5 mg PO BID DULoxetine HCL [Cymbalta] 30 mg PO DAILY Cyanocobalamin [Vitamin B-12] 500 mcg PO DAILY cloNIDine 0.1 MG/24HR PATCH [Catapres-TTS] 1 patch TRANSDERM SA Magnesium Oxide [Magnesium] 500 mg PO BID-W/MEALS Ondansetron [Zofran] 4 mg PO Q6H PRN PRN Reason: Nausea And Vomiting LORazepam [Ativan] 1 mg PO DAILY PRN PRN Reason: LOWER HEART RATE Thiamine [Vitamin B-1] 100 mg PO DAILY Acetaminophen Tab [Tylenol] 650 mg PO Q4H PRN PRN Reason: Fever And/ Or Pain Multivitamins, Thera [Multivitamin (formulary)] 1 tab PO DAILY Mag Hydrox/Aluminum Hyd/Simeth [Mylanta Maximum Strength Liq] 30 ml PO Q4H PRN PRN Reason: Gi Upset guaiFENesin SYRUP 100MG/5ML [Robitussin] 200 mg PO Q4H PRN PRN Reason: Cough Magnesium Hydroxide [Milk of Magnesia] 2,400 mg PO BID PRN PRN Reason: Constipation Hyoscyamine Sulfate [Levsin] 0.125 mg PO QID PRN PRN Reason: Gi Upset Calcium/Mag/Zinc/Kerry D 1 tab PO TID PRN PRN Reason: CRAMPING Discontinued Ibuprofen [Motrin Ib] 600 mg PO Q6H PRN PRN Reason: Fever And/ Or Pain Discharge Medication List Acetaminophen Tab [Tylenol] 650 mg PO Q4H PRN 09/02/22 [History] Calcium/Mag/Zinc/Kerry D 1 tab PO TID PRN 09/02/22 [History] Chlorpheniramine Maleate [Chlor-Trimeton] 4 mg PO Q4H PRN 09/02/22 [History] Cyanocobalamin [Vitamin B-12] 500 mcg PO DAILY 09/02/22 [History] DULoxetine HCL [Cymbalta] 30 mg PO DAILY 09/02/22 [History] Docusate [Colace] 100 mg PO BID PRN 09/02/22 [History] Hyoscyamine Sulfate [Levsin] 0.125 mg PO QID PRN 09/02/22 [History] LORazepam [Ativan] 1 mg PO DAILY PRN 09/02/22 [History] Loperamide HCl [Imodium A-D] 4 mg PO QID PRN 09/02/22 [History] Mag Hydrox/Aluminum Hyd/Simeth [Mylanta Maximum Strength Liq] 30 ml PO Q4H PRN 09/02/22 [History] Magnesium Hydroxide [Milk of Magnesia] 2,400 mg PO BID PRN 09/02/22 [History] Magnesium Oxide [Magnesium] 500 mg PO BID-W/MEALS 09/02/22 [History] Multivitamins, Thera [Multivitamin (formulary)] 1 tab PO DAILY 09/02/22 [History] Ondansetron [Zofran] 4 mg PO Q6H PRN 09/02/22 [History] Thiamine [Vitamin B-1] 100 mg PO DAILY 09/02/22 [History] amLODIPine [Norvasc] 5 mg PO BID 09/02/22 [History] cloNIDine 0.1 MG/24HR PATCH [Catapres-TTS] 1 patch TRANSDERM SA 09/02/22 [Hist ory] guaiFENesin SYRUP 100MG/5ML [Robitussin] 200 mg PO Q4H PRN 09/02/22 [History] Metoprolol Succinate (ER) [Toprol XL] 50 mg PO DAILY #30 tab 09/04/22 [Rx] Follow up Appointment(s)/Referral(s): None,Stated [REFERRING] - 1-2 days Patient Instructions/Handouts: Chest Pain (DC), Alcohol Withdrawal (DC) Discharge Disposition: HOME SELF-CARE
== END 2022-09-04 14:57 | disposition home or self-care (01) | DRG 897 ==
LOC: EC 23:28 → 3SCARD 09-02 01:04
PROVIDERS: ADMIT Internal Medicine; ATTEND Internal Medicine
PROC: HZ2ZZZZ Detoxification Services for Substance Abuse Treatment (ICD-10-PCS; principal; 2022-09-02)
PROC: B246ZZ4 Ultrasonography of Right and Left Heart, Transesophageal (ICD-10-PCS; 2022-09-03)
DX: F10.239 Alcohol dependence with withdrawal, unspecified (principal); G11.9 Hereditary ataxia, unspecified; I25.10 Atherosclerotic heart disease of native coronary artery without angina pectoris; E87.8 Other disorders of electrolyte and fluid balance, not elsewhere classified; R07.9 Chest pain, unspecified; R00.0 Tachycardia, unspecified; E83.51 Hypocalcemia; E83.42 Hypomagnesemia; I10 Essential (primary) hypertension; F41.9 Anxiety disorder, unspecified; Z71.41 Alcohol abuse counseling and surveillance of alcoholic; F32.A Depression, unspecified; S22.31XD Fracture of one rib, right side, subsequent encounter for fracture with routine healing; K21.9 Gastro-esophageal reflux disease without esophagitis; Z79.899 Other long term (current) drug therapy; Z82.49 Family history of ischemic heart disease and other diseases of the circulatory system; Z91.030 Bee allergy status; Z91.040 Latex allergy status; Z88.0 Allergy status to penicillin; Z88.8 Allergy status to other drugs, medicaments and biological substances; Z87.891 Personal history of nicotine dependence
CPT/HCPCS: 36415; 71046; 80048; 80053; 83605; 83735; 84443; 84484; 85025; 85610; 85730; 93005; 93306; 96361; 96372; 96374; 99285